=== PATIENT | female | born 1990 | race Caucasian/White ===

== ENCOUNTER 2016-10-14 07:44 | Inpatient (IN) | payer OTHER ==
[2016-10-14] VITALS (9 sets, daily range): BP systolic 110–130; BP diastolic 55–62
[2016-10-14] MEDS ORDERED: PRENATAL1 TAB PO (09:30)
[2016-10-15 00:15] VITALS: BP 112/72
[2016-10-15 05:00] VITALS: BP 115/67
[2016-10-15 08:40] VITALS: BP 109/70
--- NOTE | 2016-10-15 11:28 | Provider's Discharge Care Plan ---
Problem, Goal, Plan Problem List 1. Vaginal delivery Goals: Improve disease control Instructions: Follow up as needed
--- NOTE | 2016-10-15 11:28 | Provider's Discharge Care Plan ---
Problem, Goal, Plan Problem List 1. Vaginal delivery Goals: Improve disease control Instructions: Follow up as needed
--- NOTE | 2016-10-15 16:16 | DISCHARGE SUMMARY ---
ADMIT DATE: 10/14/2016 DISCHARGE DATE: 10/15/2016 ADMITTING DIAGNOSES: 1. No care at 38+ weeks gestation 2. Active labor 3. Smoking heroin p.r.n. 4. Emergency department visit 3 weeks previously, seen by me DISCHARGE DIAGNOSES: 1. No care at 38+ weeks gestation 2. Active labor 3. Smoking heroin p.r.n. 4. Emergency department visit 3 weeks previously, seen by me 5. Delivered 6. 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 She does have a history of taking Suboxone 8 mg in the past. Also, she has a history of methadone use. When she has gone in, she states she uses 40 mg. She came in active labor yesterday, 4-5 cm at approximately 7:30 in the morning. She progressed to spontaneous rupture of membranes around 11:00 and had significant decelerations, dropping from 140 down to 40s. After this was observed for some time, with hydration and oxygenation, after an epidural had been given, I used a Mityvac with 1 pull to deliver the infant. The RT was present. was active and lively and did well, 6+ pounds. The patient is doing well in the past 24 hours. I did not give her any methadone , since she has no dated dose here. She has taken some Vicodin over the past 24 hours. DISCHARGE INSTRUCTIONS/MEDICATIONS: She was given information with regard to being discharged versus rooming in. Social work has seen the patient. She has these appointments figured out, scheduled, and then she is going to follow up, after warnings and precautions from me. She will follow up in 6 weeks. No pain medication given for discharge.
== END 2016-10-15 12:30 | disposition home or self-care (01) | DRG 560 ==
LOC: OBC SRH 07:44 → OB SRH 07:59
PROVIDERS: ADMIT Obstetrics & Gynecology
PROC: 0HQ9XZZ Repair Perineum Skin, External Approach (ICD-10-PCS; principal; 2016-10-14)
PROC: 10D07Z6 Extraction of Products of Conception, Vacuum, Via Natural or Artificial Opening (ICD-10-PCS; principal; 2016-10-14)
DX: O76 Abnormality in fetal heart rate and rhythm complicating labor and delivery (principal); Z37.0 Single live birth; O70.0 First degree perineal laceration during delivery; O69.1XX0 Labor and delivery complicated by cord around neck, with compression, not applicable or unspecified; O99.324 Drug use complicating childbirth; F11.90 Opioid use, unspecified, uncomplicated; Z3A.38 38 weeks gestation of pregnancy
CPT/HCPCS: 40011; 82997; 83411; 83475; 90004; 90074; 90078; 90599; 90600; 90605; 90606; 90851; 91162; 91163; 91643; 92760; 92761; 92762; 92763; 92764; 92765; 92766; 92767; 98480